=== PATIENT | male | born 1960 | race Caucasian/White ===

== ENCOUNTER 2020-09-15 07:50 | Day surgery (SDC) | payer OTHER ==
--- NOTE | 2020-09-02 17:01 | NUR ---
STAIRS: PT HAS 2 STEPS TO GET INTO THE HOME TUB/SHOWER: WALKING SHOWER AND HAS SHOWER CHAIR WALKER: HAS [facility]: WILL DRIVE HIM HELP AT HOME AND TRANSPORTATION WILL HELP HIM. TOLITE: DOES NOT NEED ANYTHING AT THIS TIME.
[~2020-09-15] VITALS: Ht 175.3 cm; Wt 95.5 kg
[~2020-09-15 07:50] MED LIST: ASPIR 8181 MG PO; ASPIRIN325 MG PO; ASPIRIN81 MG PO; BYSTOLIC20 MG PO; CELECOXIB200 MG PO; CRESTOR20 MG PO; GABAPENTIN300 MG PO; HYDROCHLOROTHIA25 MG PO; IRON159 MG PO; OMEGA 3 1,0001 EACH PO; OXYCODONE HCL5 MG PO; SENNA LAX8.6 MG PO; VITAMIN B122500 MCG PO; VITAMIN C1000 MG PO; VITAMIN D350 MC3 PO; ZYRTEC10 MG PO
--- NOTE | 2020-09-15 09:05 | NUR ---
ASSISTED ALEX THERAPEUTIC SPECIALIST WITH BLOCK. STARTED TXA. BED RAILS UP, VERBALIZED TO PATIENT NOT TO GET UP AFTER RECIEVING MEDICAITON.
--- NOTE | 2020-09-15 12:15 | NUR ---
09/15/20 1215 Larissa Fox 1127 PT ARRIVED IN PACU WIDE AWAKE WITH NO C/O'S. ON QUE SET AT 4ML AN HOUR FROM SURGERY. 1145 VISITING WITH STAFF. CRYO CUFF PLACED ON L KNEE. 1210 TO DS. REPORT GIVEN TO RN. AT BEDSIDE.
--- NOTE | 2020-09-15 13:08 | NUR ---
TAKING SIPS OF WATER. DENIES NAUSEA OR PAIN. SPINAL LEVEL AT L5.
--- NOTE | 2020-09-15 13:12 | NUR ---
JAGJIT PROVIDED. CALLED PHYSICAL THERAPY AND LEFT MESSAGE THAT PT IS READY TO BE SEEN.
--- NOTE | 2020-09-15 13:30 | NUR ---
SPOUSE RETURNS TO ROOM AT 1320. SOUP PROVIDED. CONTINUES TO DENY NAUSEA OR PAIN. DRESSING REMAINS CDI. SPINAL APPEARS RESOLVED
--- NOTE | 2020-09-15 14:07 | OR ---
[facility] [address], [place] [address] Signed DATE OF OPERATION: 09/15/2020 SURGEON: Tod Braun MD PREOPERATIVE DIAGNOSIS: Degenerative joint disease, left knee. POSTOPERATIVE DIAGNOSIS: Degenerative joint disease, left knee. PROCEDURE PERFORMED: Left total knee arthroplasty. [employer]ASS PLANT MANAGER: THU Mackey. ANESTHESIA: Spinal. BLOOD LOSS: 225 mL. IMPLANTS: [place] Triathlon size 5, 9 mm poly and 35 mm patella. BRIEF HISTORY: Anna is a 60-year-old gentleman with bilateral knee arthritis. He had undergone right TKR with excellent results, wished to proceed with a left. Risks and benefits of operative treatment were discussed with him and he elected to proceed. DESCRIPTION OF PROCEDURE: Once consent was obtained, he was taken to the operating room. After anesthesia, he was placed on operating room table. A hip bump was placed on the left. The leg was then prepped and draped in a standard sterile fashion. The leg was approached through standard anterior incision, taken through skin and subcutaneous tissue. A subvastus approach was taken through the capsule and taken inferiorly along the vastus medialis obliquus. The fat pad was incised and the MCL was elevated with a sleeve around the posteromedial corner. The bleeders were cauterized as we went. No tourniquet was used. The infrapatellar fat pad was excised and the knee was flexed. The anterior horns of menisci were transected as was the ACL. The two pins for the femoral array for the Electronically Signed By: TOD BRAUN MD 09/15/20 1407 PATIENT NAME: ANNA NICHOLAS OPERATIVE REPORT DATE OF : 64 REPORT #: [id number] PHYSICIAN: TOD BRAUN MD PCP: NO PRIMARY CARE PHYSICIAN REPORT IS CONFIDENTIAL AND NOT TO BE RELEASED WITHOUT AUTHORIZATION [facility] [address], [place] [address] Signed MAKOplasty were placed in the medial femoral condyle along with checkpoint. The checkpoint was placed on the tibial side and the two pins for the computer array were placed three fingers below the tibial tuberosity. The leg was then registered with the computer and the fine anatomic points were taken both on the femur and tibia. Once this was accomplished, the stress views were taken and the implant was adjusted slightly. The robot was then brought in and the straight cuts were made starting with the tibia and going through the femur. It was then switched to the angled cutter and the 2 angle cuts were made. The bone was then excised and the osteophytes were removed. We then placed the trials and take the knee through range of motion from 0 to about 140 degrees of flexion, it was ligamentously stable and balanced according to the computer and the field of the leg. The patella was cut sized and drilled for 35 patella. The distal femoral drill holes were made and the tibia was finished using the keel punch and the drill mandrel. The bone was pulse lavaged. The tibia was impacted in position first followed by the polyethylene. The femur was impacted into position next and the knee was extended and nicely loaded. The patella was then clamped into position and the knee was taken through range of motion and the patella aligned quite nicely. He was stable throughout. The knee was pulse lavaged at intervals throughout the procedure. A total of 2.5 L of antibiotic irrigation including 500 mL of dilute iodine were used. The On-Q pain pump was placed into the adductor canal from the suprapatellar pouch. The arthrotomy was then closed using #2 Stratafix, 0 Stratafix for the subcutaneous tissue and bao for the skin. The wound was dressed with Acticoat 7 dressing and he was awakened and taken to the recovery room in satisfactory condition. All sponge, needle, and instrument counts were correct. Tod Braun MD BA/MODL /[id number] Copies: ~ Electronically Signed By: TOD BRAUN MD 09/15/20 1407 PATIENT NAME: ANNA NICHOLAS OPERATIVE REPORT DATE OF : 64 REPORT #: [id number] PHYSICIAN: TOD BRAUN MD PCP: NO PRIMARY CARE PHYSICIAN REPORT IS CONFIDENTIAL AND NOT TO BE RELEASED WITHOUT AUTHORIZATION
--- NOTE | 2020-09-15 14:33 | NUR ---
PHYSICAL THERAPIST IN ROOM AT 1425. PT AMBULATED TO BR AND HAD SMALL URINARY UNMEASURED URINARY OUTPUT. PT LEFT DEPARTMENT FOR PHYSICAL THERAPY IN COMPANY OF THERAPIST.
[2020-09-15] MEDS ORDERED: ASPIRIN EC325 MG PO (14:39)
[2020-09-15] MEDS ORDERED: OXYCODONE HCL5 MG PO (14:39)
[2020-09-15] MEDS ORDERED: STOOL SOFTENER1 EAC4 PO (14:39)
[2020-09-15] MEDS ORDERED: GABAPENTIN600 MG PO (14:39)
--- NOTE | 2020-09-15 16:11 | NUR ---
@ 1600 BLADDER SCAN PATIENT 590 ML. PATIET THEN UP AND AMBULATED TO BATHROOM VOIDING 550 ML. PVR 50ML. PATIENT AMBULATING WELL AND APPEARS STEADY ON FEET. APPLIED LORI WRAP TO LEFT SURGICAL KNEE WITH VERBALIZED OKAY FROM DR. LIEBERMAN. DRESSING C/D/I, STRONG PEDAL PULSE, SKIN WARM AND DRY. PHYSICAL THERAPY VERBALIZED OKAY FOR PATIENT TO GO HOME. PATIENT NOW DRESSING SELF WITH ASSIST IN ROOM.
--- NOTE | 2020-09-15 16:25 | NUR ---
PT LEFT DAY SURGERY RM 4 VIA WHEELCHAIR. PT TRANSFERED INDEPENDENTLY FROM WHEELCHAIR TO VEHICLE WITH NO COMPLICATIONS. PT PROVIDED TRANSPORTATION.
== END 2020-09-15 16:20 | disposition home or self-care (01) ==
LOC: DS 07:50
PROVIDERS: ATTEND Specialist
PROC: 8E0Y0CZ Robotic Assisted Procedure of Lower Extremity, Open Approach (ICD-10-PCS; 2020-09-15)
PROC: 3E0T3BZ Introduction of Anesthetic Agent into Peripheral Nerves and Plexi, Percutaneous Approach (ICD-10-PCS; 2020-09-15)
PROC: 3E0T33Z Introduction of Anti-inflammatory into Peripheral Nerves and Plexi, Percutaneous Approach (ICD-10-PCS; 2020-09-15)
PROC: 0SRD0JZ Replacement of Left Knee Joint with Synthetic Substitute, Open Approach (ICD-10-PCS; principal; 2020-09-15 08:30)
DX: M17.12 Unilateral primary osteoarthritis, left knee (principal); I10 Essential (primary) hypertension; E78.00 Pure hypercholesterolemia, unspecified; E66.3 Overweight; G89.18 Other acute postprocedural pain; Z68.32 Body mass index [BMI] 32.0-32.9, adult; Z88.5 Allergy status to narcotic agent; Z96.651 Presence of right artificial knee joint; Z79.899 Other long term (current) drug therapy; Z79.82 Long term (current) use of aspirin
CPT/HCPCS: 0055T; 27447; 64999; 01402; 64447; 64450; 76942; 97116; 97161; C1776; J0690; J1100; J1885; J2001; J2250; J2704; J2795; J7121